=== PATIENT | female | born 1970 | race Caucasian/White ===

== ENCOUNTER → 2016-05-31 | Outpatient (CLI) | payer BC ==
[2016-05-31 11:57] LABS: HEMOGLOBIN 13.6 gm/dl (12.3-15.3); RED BLOOD COUNT 4.36 M/UL (4.00-5.10); WHITE BLOOD COUNT 6.1 K/UL (4.5-11.0)
[2016-05-31 12:19] LABS: BUN/CREATININE RATIO 17 (0-10)
== END ==
LOC: LAB 11:37
PROVIDERS: Internal Medicine
DX: E78.2 Mixed hyperlipidemia (principal); E55.9 Vitamin D deficiency, unspecified
CPT/HCPCS: 36415; 80048; 80061; 80076; 84443; 85025

== ENCOUNTER → 2016-06-09 | Outpatient (CLI) | payer BC | LOC: MAMO 15:17 | DX: Z12.31 Encounter for screening mammogram for malignant neoplasm of breast (principal) | CPT/HCPCS: G0202 ==

== ENCOUNTER → 2016-08-12 | Outpatient (CLI) | payer BC ==
[2016-08-12 15:48] LABS: HEMOGLOBIN 13.1 gm/dl (12.3-15.3); RED BLOOD COUNT 4.25 M/UL (4.00-5.10); WHITE BLOOD COUNT 6.8 K/UL (4.5-11.0)
[2016-08-12 16:18] LABS: BUN/CREATININE RATIO 22 (0-10)
== END ==
LOC: LAB 15:20
PROVIDERS: Physician Assistant
DX: R11.2 Nausea with vomiting, unspecified (principal)
CPT/HCPCS: 36415; 80048; 85025

== ENCOUNTER → 2016-09-15 | Outpatient (CLI) | payer BC | LOC: KOH-I 08:45 | DX: R51 Headache (principal); E53.9 Vitamin B deficiency, unspecified; G43.909 Migraine, unspecified, not intractable, without status migrainosus; R20.2 Paresthesia of skin; J32.0 Chronic maxillary sinusitis | CPT/HCPCS: 70551 ==

== ENCOUNTER → 2020-08-11 | Outpatient (CLI) | payer BC ==
[~2020-08-11] MED LIST: AJOVY225 MG/1.5 SQ; BIOTIN PO; IBU800 MG PO; IBUPROFEN600 MG PO; VITAMIN D3125 MC1 PO
[2020-08-11 11:36] LABS: HEMOGLOBIN 14.2 gm/dl (12.3-15.3); RED BLOOD COUNT 4.45 M/UL (4.00-5.10); WHITE BLOOD COUNT 5.8 K/UL (4.5-11.0)
[2020-08-11 23:34] LABS: BUN/CREATININE RATIO 21 (0-10)
== END ==
LOC: LAB 10:44
PROVIDERS: Internal Medicine
DX: E78.2 Mixed hyperlipidemia (principal)
CPT/HCPCS: 80048; 80061; 80076; 84443; 85025

== ENCOUNTER → 2020-09-06 | Outpatient (CLI) | payer BC | LOC: MAMO 15:17 | DX: Z12.31 Encounter for screening mammogram for malignant neoplasm of breast (principal) | CPT/HCPCS: 77063; 77067 ==

== ENCOUNTER → 2020-09-14 | Day surgery (SDC) | payer BC | END | disposition home or self-care (01) | LOC: OR 07:45 | DX: Z12.11 Encounter for screening for malignant neoplasm of colon (principal); E78.2 Mixed hyperlipidemia; K21.9 Gastro-esophageal reflux disease without esophagitis; M19.90 Unspecified osteoarthritis, unspecified site; F40.243 Fear of flying; G43.909 Migraine, unspecified, not intractable, without status migrainosus; G25.81 Restless legs syndrome; E55.9 Vitamin D deficiency, unspecified; Z88.0 Allergy status to penicillin; Z88.8 Allergy status to other drugs, medicaments and biological substances; Z79.1 Long term (current) use of non-steroidal anti-inflammatories (NSAID); Z79.899 Other long term (current) drug therapy | CPT/HCPCS: 84703; J2704; J7030 ==

== ENCOUNTER → 2021-03-09 | Outpatient (CLI) | payer BC ==
[2021-03-09 09:28] LABS: HEMOGLOBIN 13.8 gm/dl (12.3-15.3); RED BLOOD COUNT 4.36 M/UL (4.00-5.10); WHITE BLOOD COUNT 7.1 K/UL (4.5-11.0)
[2021-03-09 09:57] LABS: BUN/CREATININE RATIO 27 (0-10)
== END ==
LOC: LAB 09:08
PROVIDERS: Physician Assistant
DX: M25.562 Pain in left knee (principal); G25.81 Restless legs syndrome
CPT/HCPCS: 36415; 73562; 80048; 80061; 80076; 82607; 84443; 85025

== ENCOUNTER → 2021-06-13 | Outpatient (CLI) | payer BC ==
[2021-06-13 11:01] LABS: HEMOGLOBIN 13.2 gm/dl (12.3-15.3); RED BLOOD COUNT 4.33 M/UL (4.00-5.10)
[2021-06-13 11:31] LABS: BUN/CREATININE RATIO 20 (0-10)
== END ==
LOC: LAB 10:13
PROVIDERS: Internal Medicine
DX: E53.8 Deficiency of other specified B group vitamins (principal); E55.9 Vitamin D deficiency, unspecified; E78.2 Mixed hyperlipidemia
CPT/HCPCS: 36415; 80053; 80061; 82607; 84443; 85025

== ENCOUNTER → 2021-10-26 | Outpatient (CLI) | payer BC | LOC: LAB 09:41 | DX: E04.1 Nontoxic single thyroid nodule (principal) | CPT/HCPCS: 36415; 84443 ==

== ENCOUNTER → 2021-11-08 | Outpatient (CLI) | payer BC | LOC: MAMO 10-25 10:30 → US 10-25 14:30 → MAMO 11-01 08:00 → US 11-01 13:30 | DX: Z12.31 Encounter for screening mammogram for malignant neoplasm of breast (principal); E04.1 Nontoxic single thyroid nodule | CPT/HCPCS: 76536; 77063; 77067 ==

== ENCOUNTER → 2021-12-23 | Outpatient (CLI) | payer BC | LOC: US 09:49 | DX: E04.1 Nontoxic single thyroid nodule (principal) ==